=== PATIENT | male | born 1975 ===

== ENCOUNTER 2024-09-11 14:46 | Emergency (ER) | payer SELFPAY ==
[2024-09-11] VITALS (7 sets, daily range): BP systolic 180–196; BP diastolic 110–124; PULSE 100–106; RESP 15–96; TEMP 37.2; O2SAT 95–97; BMI 27.6
--- NOTE | 2024-09-11 14:49 | EDNOTE_ITS ---
ED General RME/HPI General Chief complaint: Altered Mental Status Stated complaint: STROKE ALERT RME / HPI RME / HPI narrative: DR. LIM MAIN ED EVALUATION: Approximately 49 year old Phil Lisa male with past medical history significant for diabetes presents to the Emergency Department BIBA from home with complaint of left-sided weakness and left facial droop. Last well known is unknown. At arrival, we know his name is Davie but they do not know his age or last name at this time. Someone came to check if he had ate and found him at his home on the floor and then he was placed on bed and EMS found him on bed. No signs of fall but unknown how long. Per EMS, BP is 174/115 and HR of 105. Review of Systems Review of Systems ROS Unobtainable: unobtainable due to mental status Past Medical History Past Medical History ENDOCRINE: Positive Diabetes Mellitus Type 2 Social History SMOKING STATUS: Never smoker SUBSTANCE USE: does not use ALCOHOL: Never ED Exam Narrative Physical exam: GENERAL APPEARANCE: Slow to respond his name, he holds his right head like indicating that is hurts, generally well-appearing, no acute distress. HEENT: NC, AT. MMM. EOMI, clear conjunctiva, oropharynx clear. NECK: Supple without lymphadenopathy. No stiffness or restricted ROM. HEART: Normal rate and regular rhythm, normal S1/S1, no m/r/g LUNGS: CTAB, moving air well. No crackles or wheezes are heard. ABDOMEN: Soft, nontender, nondistended with good bowel sounds heard. BACK: No midline C/T/L spine pain or deformity, No CVAT, no obvious deformity. EXTREMITIES: Without cyanosis, clubbing or edema. MUSCULOSKELETAL: FROM of all major joints, no chest tenderness NEUROLOGICAL: Right sided weakness, Motor strength - LUE: 0/5; Motor strength - LLE: 2/5. Skin: Warm and dry without any rash. Course Course Course Narrative: 1440: Stroke alert initiated. Orders made at this time are congruent stroke protocol. Quality Measures none Orders Category Date Time Status Bedside Blood Glucose NOW Care 09/11/24 14:50 Completed Director Of Healthcare Systems NOW Care 09/11/24 14:50 Completed Continuous Pulse Oximetry NOW Care 09/11/24 14:50 Completed EKG (ED ONLY) *Do not use* NOW Care 09/11/24 14:50 Completed In and Out Catheter NEEDED Care 09/11/24 14:50 Completed Insert IV NOW Care 09/11/24 14:50 Completed NIH Stroke Scale now Care 09/11/24 14:50 Completed NPO NOW Care 09/11/24 14:50 Completed Neuro Check Q15MIN Care 09/11/24 14:50 Completed Nurse Swallow Screen x1 Care 09/11/24 14:50 Completed Consult to Neurology / Tele-Neurology Routine Cons 09/11/24 14:50 Active Referral - Analysis Analyst Stat Cons 09/11/24 15:[address] angio stroke protocol Stat Exams 09/11/24 14:[address] stroke protocol Stat Exams 09/11/24 14:50 Completed EKG (ED Only) Stat Exams 09/11/24 14:50 Ordered Alcohol, Blood Medical Stat Lab 09/11/24 14:50 Completed CBC Stat Lab 09/11/24 14:50 Completed Comprehensive Metabolic Panel Stat Lab 09/11/24 14:50 Completed Creatine Kinase Stat Lab 09/11/24 14:50 Completed Drug Screen,Urine Stat Lab 09/11/24 15:31 Completed Magnesium Stat Lab 09/11/24 14:50 Completed Partial Thromboplastin Time Stat Lab 09/11/24 14:50 Completed Prothrombin Time with INR Stat Lab 09/11/24 14:50 Completed Troponin I Stat Lab 09/11/24 14:50 Completed Urinalysis Stat Lab 09/11/24 15:31 Completed Urine Culture Stat Lab 09/11/24 15:31 Received Ondansetron Inj [Zofran Inj] Med 09/11/24 14:50 Discontinued 4 mg IVP Q4HR PRN Oxygen Delivery NOW RT 09/11/24 14:50 Completed Vital Signs Vital signs: Vital Signs Temperature 99.0 F 09/11/24 15:33 Respiratory Rate 17 09/11/24 15:33 Blood Pressure 184/122 H 09/11/24 15:33 Pulse Oximetry (%) 96 09/11/24 15:33 Oxygen Delivery Method Room Air 09/11/24 15:33 Critical Care Time Critical Care Time Critical Care Time: Yes Total Critical Care Time (min.): 45 Attestation: The high probability of sudden, clinically significant deterioration in the patient?s condition required the highest level of my preparedness to intervene urgently. The services I provided to this patient were to treat and/or prevent clinically significant deterioration. Services included the following: chart data review, reviewing nursing notes and/or old charts, documentation time, sephora operations consultant collaboration regarding findings and treatment options, medication orders and management, direct patient care, vital sign assessments and ordering, interpreting and reviewing diagnostic studies and lab tests. Aggregate critical care time includes only time during which I was engaged in work directly related to the patient?s care, as described above, whether at bedside or elsewhere in the Emergency Department. It did not include time spent performing other reported procedures or the services of residents, students, nurses or physician assistants. Discharge Plan Plan Patient Disposition: [facility] Pt Being Transferred to: [facility] Service Needed for Transfer: Neurology Discharge Disposition comment: [facility] Problem List Clinical Impression: Acute CVA (cerebrovascular accident), Occlusion of right internal carotid artery Patient/Caregiver Discharge Instructions Print Language: Albanian Stand Alone Forms: Denise Award Info., Patient Portal Info Letter MDM Narrative [facility] hospital course: I, Harriet Kimble, am scribing for and in the presence of Dr. Lim. Clinical Information Provided by EMS Medical Records Reviewed EMS Meds/Rx Considered, not Ordered None Labs/Rad/Tests considered, not Ordered None Chronic Illness/Social Conditions Add or document further as needed: Diabetes EKG Interpretation EKG #1: Date/time of EK09/11/24 1519 hours EKG interpretation: sinus tachycardia, rate 103, normal intervals, normal axis, no acute ST-T wave changes Imaging Radiology reports / interpretation(s): Procedure(s): CT stroke protocol Accession Number(s): [id number] cc: Schuyler Lim MD; Lei Bustamante MD~ Examination: CT brain head without contrast. 2-D sagittal coronal reconstructions Date and time of exam:September 11, 2024 1452 hours INDICATIONS: Stroke alert, onset focal neurologic deficit, left-sided body weakness and facial droop today CTDI: vol (mGy):50.8 DLP: (mGycm):1023 Technique: Multiple CT axial sections of the brain have been obtained, 5 mm slice thickness. Contrast has not been administered. 2-D sagittal, coronal reconstructions have been obtained Low dose protocols were performed. One or more of the following dose reduction techniques were used; automated exposure control, adjustment of the mA and/or KV according to patient size, use of iterative reconstruction technique. Findings: No significant ventricular enlargement. Encephalomalacia right parietal lobe axial image 15 Intra-axial or extra-axial hemorrhage density is not seen. No mass effect or midline shift Basal cisterns are not remarkable. Fourth ventricle is midline. Cranial vault intact. Impression: Negative for acute hemorrhage, mass effect or midline shift Encephalomalacia right parietal lobe axial image 15, but clinical correlation advised Dictated By: Lei Bustamante MD Procedure(s): CT angio stroke protocol Accession Number(s): [id number] cc: Schuyler Lim MD; Lei Bustamante MD~ Examination: CTA carotids with intravenous contrast CTA brain, head with intravenous contrast. 2-D sagittal, coronal reconstructions. 3-D reconstructions. Exam date and time: September 11, 2024 1457 hours INDICATIONS: Stroke alert, onset left-sided facial weakness facial droop today CTDI: vol (mGy) 29 DLP: (mGycm) 494 Technique: Multiple CTA axial brain, head carotid images post intravenous contrast injection 75 cc, Isovue-370. 2-D sagittal, coronal reconstructions. 3-D reconstructions, 3-D post processing including vascular maximum intensity projection images. Low dose protocols were performed. One or more of the following dose reduction techniques were used; automated exposure control, adjustment of the mA and/or KV according to patient size, use of iterative reconstruction technique. Findings: Occlusion of the proximal right internal carotid artery, axial images 140 through 123 Reconstitution of the distal right internal carotid artery 80-90% stenosis proximal left internal carotid artery axial image 142 Codominant vertebral arteries with no critical stenoses No cerebral large vessel arterial occlusions or thrombus IMPRESSION: Occlusion of the proximal right internal carotid artery over a distance of 14 mm with filling of the more distal right internal carotid artery 89% stenosis proximal left internal carotid artery No cerebral large vessel arterial occlusions or thrombus Dictated By: Lei Bustamante MD Medication Administration(s) Medication Administration History Discontinued Medications Ondansetron HCl (Ondansetron Inj 2 Mg/Ml Inj 2 Ml) 4 mg IVP Q4HR PRN PRN Reason: NAUSEA OR VOMITING Stop: 10/11/24 14:49 Consultations/Discussions re: Management Consult #1: Date/time: 09/11/24 4:51 pm Physician, specialty, service, details: Discussed test HPI, PMHx, lab, radiology results and/or management with Dr. Meyer from [facility]. Accepts patient for transfer, ED to ED. Diagnosis Differential diagnosis: TIA, CVA, brain bleed Most likely dx, and/or detailed dx discussion: CVA Occlusion of the right internal carotid artery Dispositon Disposition: Transfer
--- NOTE | 2024-09-11 14:50 | EKG_ITS ---
[facility] Test Date: 2024-09-11 Pat Name: Jimenez [place] Department: Room: - Gender: Male Pharmaceutical Service Representative: : 1975 Requested By: Schuyler Zamora Order Number: [id number] Reading MD: Schuyler Zamora Measurements Intervals [place] Rate: 103 P: 86 AL: 186 QRS: -34 QRSD: 115 T: 18 QT: 389 QTc: 511 Interpretive Statements SINUS TACHYCARDIA WITH OCCASIONAL VENTRICULAR PREMATURE COMPLEXES LEFT AXIS DEVIATION [QRS AXIS < -30] PATTERN CONSISTENT WITH PULMONARY DISEASE MODERATE INTRAVENTRICULAR CONDUCTION DELAY [110+ ms QRS DURATION] No previous ECG available for comparison /store/S0/[id number]/ecg/[id number].pdf
[2024-09-11 15:07] LABS: Basophils % (Auto) 0 % (0-2.5); Eosinophils % (Auto) 0 % (0-10); Hematocrit 43.2 % (41.0-53.0); Hemoglobin 15.2 g/dL (13.5-16.0); Immature Granulocytes % (Auto) 0 % (0-0); Immature Granulocytes Auto 0.04 Thou/mm3 (0.00-0.00); Lymphocytes # (Auto) 0.5 Thou/mm3 (1.0-4.8); Lymphocytes % (Auto) 5 % (10-50); Mean Corpuscular HGB Conc 35.2 g/dl (31.0-37.0); Mean Corpuscular Hemoglobin 27.6 pg (25.0-35.0); Mean Corpuscular Volume 79 fL (80-100); Monocytes # (Auto) 0.6 Thou/mm3 (0.0-0.8); Monocytes % (Auto) 6 % (0-12); Neutrophils # (Auto) 9.4 Thou/mm3 (1.8-7.7); Neutrophils % (Auto) 88 % (37-80); Nucleated Red Blood Cell % 0 /100 WBC (0); Platelet Count 223 Thou/mm3 (140-440); RDW Standard Deviation 39.5 fL (35.1-43.9); White Blood Count 10.6 Thou/mm3 (3.8-10.6)
[2024-09-11 15:25] LABS: Alanine Aminotransferase 17 U/L (10-49); Albumin/Globulin Ratio 1.2 (1.2-2.2); Alcohol, Blood Medical < 10.0 mg/dL (0-10.0); Alkaline Phosphatase 103 U/L (46-116); Anion Gap 11 (7-16); Aspartate Amino Transferase 35 U/L (0-34); BUN/Creatinine Ratio 9 Ratio (12-20); Bilirubin,Total 1.6 mg/dL (0.3-1.2); Blood Urea Nitrogen 8 mg/dL (9-23); Calcium 8.5 mg/dL (8.3-10.6); Calcium (Corrected) 8.5 mg/dL (8.5-10.1); Carbon Dioxide 27.3 mMol/L (20.0-31.0); Chloride 97 mMol/L (98-107); Creatinine (Component) 0.9 mg/dL (0.6-1.3); Globulin 3.4 gm/dL (2.3-3.5); Glucose 232 mg/dL (74-106); Magnesium 1.4 mg/dL (1.6-2.6); Osmolality,Calculated 275 (275-295); Partial Thromboplastin Time 28.9 Seconds (22.0-36.0); Prothrombin Time 11.1 Seconds (9.0-12.2); Sodium 135 mMol/L (136-145); Total Protein 7.4 gm/dL (5.7-8.2); Troponin I < 0.020 ng/mL (0.0-0.045); eGFR > 60 See Note
[2024-09-11 15:40] LABS: Collection Type, Urine Catheter
--- NOTE | 2024-09-11 15:42 | PC.CC ---
Addendum entered by Robby Figueroa RN 09/11/24 17:16: 1642 late note called [facility], spoke to Alexandra and informed per Dr. guajardo pt is going by ground stat and to cancel the transfer request. Addendum entered by Robby Figueroa RN 09/11/24 17:14: 1712 sent paperwork to [facility]. Called [facility], spoke to María and she confirmed that she received the paperwork. Addendum entered by Robby Figueroa RN 09/11/24 17:06: 1704 spoke to Madina at [facility] and informed about ETA. Original Note: 1630 transfer packet is complete with CD inside including all signatures. Transfer packet given to ED charge nurse. Number for report charted on tracker. 1628 Pt has no family member at bedside, unknown contact information for family. Dr. Zamora signed on pt behalf. 1623 [facility] spoke to Mar[facility] and setup the stat transport. María stated 1 unit is already at ER and is responding right now for pickup. [address] Zamora, informed pt is accepted. But [facility] gave ETA of 66 min. I informed him that I will Skylife next. He stated to do stat ground transport. 1617 called [facility], spoke to Luke to setup the transport. Luke stated ETA is 66 min. 1547 called [facility], spoke to Jigna and initated the transfer. Jigna connected me to Sanjana, ED charge nurse at [facility], verbal clinicals given. Sanjana then connected Dr. Odom with me for conference call. Read reports. Sanjana then spoke to Dr. Flannery. Total call time 20 min. I also faxed clinicals to [facility] during the call. Sanjana gave me accepting info at 1608, pt is accepted at [facility] for ED to ED transfer. Accepted by Dr. Flannery. Report can be called at [phone]. [address] Zamora, pt needs to be transferred for neuro-intervention for Stroke. Pt information is unknown. Last known well unknown.
--- NOTE | 2024-09-11 15:43 | ESCONSULT_ITS ---
Tele Neuro Consultation Consultation Date 09/11/24 Most Recent Vital Signs Last Vital Signs Temp 99.0 F 09/11/24 15:33 Resp 17 09/11/24 15:33 BP 184/122 H 09/11/24 15:33 Pulse Ox 96 09/11/24 15:33 O2 Del Method Room Air 09/11/24 15:33 Laboratory-Coagulation Panel PT 11.1 Seconds (9.0-12.2) 09/11/24 14:50 INR 1.0 (0.9-1.3) 09/11/24 14:50 APTT 28.9 Seconds (22.0-36.0) 09/11/24 14:50 Consultation Narrative [facility] TeleNeurology Consult Services Patient Name:???Jimenez Wilson Date of :???1975 Identification Number:??? Date of Service:???09/11/2024 14:40:19 Diagnosis:?I63.231 - Cerebrovascular accident (CVA) due to stenosis of right carotid artery (HCCC) Impression: ?Davie is a 69 y.o. 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 His family is out of town. A family friend checked on him today and found him on the floor. He put patient in the bed and called 911. EMS found the patient hanging usp off the bed. He has L sided weakness and intermittent slurred speech. He complains of pain at the base of his head. Patient denies history of prior stroke. He denies having any lateralizing weakness at baseline. Per EMS, patient can walk on his own without any assistive device. NIHSS 19 for decreased level of consciousness, R gaze preference, dense L hemiparesis, and dysarthria. Non contrast head CT shows no acute findings. There is encephalomalacia in the R parietal lobe. CTA head/neck shows focal occlusion of the proximal R ICA extending over 14 mm. There is 89% stenosis of the proximal L ICA. Chronicity of the proximal R ICA occlusion is unclear as we do not have prior imaging and patient has a chronic R parietal infarct on the dry CT. However, patient's exam is consistent with an acute R MCA syndrome. Given the unknown LKW, he is not a TNK candidate. ? ? ?Recommendations: ?- would recommend discussing the case with Neuro IR as patient does have an acute neurologic presentation in the setting of the proximal R ICA occlusion ?- continue Plavix 75 mg daily for secondary stroke prevention when he has PO access (aspirin 300 mg NM daily while no PO access) ?- Start atorvastatin 80 mg daily for secondary stroke prevention when there is PO access, goal LDL <70 ?- Permissive hypertension up to 220/120 x 24 hours; then goal BP normotensive ?- Continuous cardiac monitoring to evaluate for paroxysmal atrial fibrillation ?- TTE with bubble study to evaluate for potential cardioembolic source of str jone ?- MRI brain without contrast to evaluate extent of acute ischemia ?- Send routine stroke labs including HbA1c, fasting lipid panel ?- PT/OT/ST evaluation when able ? Our recommendations are outlined below. Recommendations: ? Stroke/Telemetry Floor ? Neuro Checks (Q2) ? Bedside Swallow Eval ? DVT Prophylaxis ? IV Fluids, Normal Saline ? Head of Bed 30 Degrees ? Euglycemia and Avoid Hyperthermia (PRN Acetaminophen) ? Aspirin per rectum ? Antihypertensives PRN if Blood pressure is greater than 220/120 or there is a concern for End organ damage/contraindications for permissive HTN. If blood pressure is greater than 220/120 give labetalol PO or IV or Vasotec IV with a goal of 15% reduction in BP during the first 24 hours. Sign Out: ? Discussed with Emergency Department Provider Advanced Imaging:CTA Head and Neck Completed. LVO:Yes Discussed with CARRIE :No Metrics: Last Known Well: Unknown Dispatch Time: 09/11/2024 14:40:19 Arrival Time: 09/11/2024 14:46:00 Initial Response Time: 09/11/2024 14:52:37Symptoms: left sided weakness. Initial patient interaction: 09/11/2024 15:05:18 NIHSS Assessment Completed: 09/11/2024 15:15:52Patient is not a candidate for Thrombolytic. Thrombolytic Medical Decision: 09/11/2024 15:15:54Patient was not deemed candidate for Thrombolytic because of following reasons: Care-team unable to determine eligibility. . CT Head: I personally reviewed all the CT images that were available to me and it showed: no signs of acute ischemia or acute hemorrhage. There is encephalomalacia in the R parietal lobe. I personally reviewed the CTA head/neck. There is focal occlusion of the proximal R ICA with distal filling. There is 89% stenosis of the proximal L ICA. Primary Provider Notified of Diagnostic Impression and Management Plan on: 09/11/2024 15:38:03 History of Present Illness:Patient is a 49 year old Male. Patient was brought by EMS for symptoms of left sided weakness. Davie is a 69 y.o. 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 His family is out of town. A family friend checked on him today and found him on the floor. He put patient in the bed and called 911. EMS found the patient hanging usp off the bed. He has L sided weakness and intermittent slurred speech. He complains of pain at the base of his head. Patient denies history of prior stroke. He denies having any lateralizing weakness at baseline. Per EMS, patient can walk on his own without any assistive device. ? Past Medical History: Other PMH:? hypertension, diabetes Medications: No Anticoagulant use? Antiplatelet use:?Yes?Plavix, aspirin Reviewed EMR for current medications Allergies:? Reviewed,NKDA Social History: Smoking: No Alcohol Use: Yes Drug Use: Yes Family History: There is no family history of premature cerebrovascular disease pertinent to this consultation ROS : 14 Points Review of Systems was performed and was negative except mentioned in HPI. Past Surgical History: There Is No Surgical History Contributory To Today?s Visit ? Examination: BP(190/120),?Pulse(106), 1A: Level of Consciousness - Requires repeated stimulation to arouse?+ 2 1B: Ask Month and Age - 1 Question Right?+ 1 1C: Blink Eyes & Squeeze Hands - Performs Both Tasks?+ 0 2: Test Horizontal Extraocular Movements - Partial Gaze Palsy: Can Be Overcome?+ 1 3: Test Visual Rodriguez - Patient is Bilaterally Blind?+ 3 4: Test Facial Palsy (Use Grimace if Obtunded) - Partial paralysis (lower face)? + 2 5A: Test Left Arm Motor Drift - No Movement?+ 4 5B: Test Right Arm Motor Drift - No Drift for 10 Seconds?+ 0 6A: Test Left Leg Motor Drift - No Effort Against Rail Road Flat?+ 3 6B: Test Right Leg Motor Drift - Drift, hits bed?+ 2 7: Test Limb Ataxia (FNF/Heel-Davila) - No Ataxia?+ 0 8: Test Sensation - Normal; No sensory loss?+ 0 9: Test Language/Aphasia - Normal; No aphasia?+ 0 10: Test Dysarthria - Mild-Moderate Dysarthria: Slurring but can be understood?+ 1 11: Test Extinction/Inattention - No abnormality?+ 0 NIHSS Score:?19 Pre-Morbid Modified [place] Scale:1 Points = No significant disability despite symptoms; able to carry out all usual duties and activities Spoke with :?Dr. Zamora This consult was conducted in real time using interactive audio and video technology. Patient was informed of the technology being used for this visit and agreed to proceed. Patient located in hospital and provider located at home/office setting. Patient is being evaluated for possible acute neurologic impairment and high probability of imminent or life-threatening deterioration. I spent total of 38 minutes providing care to this patient, including time for face to face visit via telemedicine, review of medical records, imaging studies and discussion of findings with providers, the patient and/or family. Dr Sydni Garcia [facility] For Inpatient follow-up with [facility] physician please call [facility] at . As we are not an outpatient service for any post hospital discharge needs please contact the hospital for assistance. If you have any questions for the [facility] physicians or need to reconsult for clinical or diagnostic changes please contact us via C at .
[2024-09-11 15:53] LABS: Bacteria,Urine Rare; Bilirubin,Urine Negative (Negative); Blood,Urine 2+ (Negative); Clarity,Urine Clear (Clear/Hazy); Color,Urine Lt-Yellow (Lt Yel-Yel); Glucose, Urine 4+ (Negative); Ketones,Urine Negative (Negative); Leukocyte Esterase,Urine Positive (Negative); Nitrite,Urine Negative (Negative); PH,Urine 6.5 (5.0-7.0); Protein,Urine 2+ (Neg - Trace); RBC,Urine 5 /hpf (0-3); Squamous Epithelial Cell,Urine < 1 /hpf (0-5); Urobilinogen,Urine Negative mg/dL (0.0-1.0); WBC,Urine 4 /hpf (0-5)
[2024-09-11 16:12] LABS: Creatine Kinase 525 U/L (34-171)
[2024-09-11 16:14] LABS: Amphetamine/Methamp Scrn,U Positive (Negative); Barbiturate Screen,Urine Negative (Negative); Benzodiazepines Screen,Urine Negative (Negative); Benzoylecgonine Screen, Ur Negative (Negative); Fentanyl Screen,Urine Negative (Negative); Opiate Screen,Urine Negative (Negative); THC Screen,Urine Negative (Negative)
== END 2024-09-11 16:50 | disposition short-term general hospital (02) ==
LOC: SERX 17:03
PROVIDERS: Emergency Provider Emergency Medicine
DX: I63.9 Cerebral infarction, unspecified (principal); I65.23 Occlusion and stenosis of bilateral carotid arteries; G93.89 Other specified disorders of brain; R29.810 Facial weakness; E11.9 Type 2 diabetes mellitus without complications; R29.711 NIHSS score 11
CPT/HCPCS: 36415; 70450; 70496; 70498; 80053; 80307; 80320; 81001; 82550; 83735; 84484; 85025; 85610; 85730; 87077; 87086; 87186; 93005; 99291; A4649; Q9967; G0480